=== PATIENT | male | born 1980 | race Caucasian/White ===

== ENCOUNTER 2022-08-27 18:14 | Emergency (ER) | payer OTHER ==
[~2022-08-27] VITALS: Ht 185.4 cm; Wt 86.2 kg
--- NOTE | 2022-08-27 18:40 | NUR ---
seen and examined by MD Ngo
[2022-08-27] MEDS ORDERED: IV NORMAL SALINE 1000 ML BAG IV ONE (18:45)
[2022-08-27] MEDS ORDERED: PROCHLORPERAZINE EDISYLATE 10 MG/2 ML VIAL IV ONE (18:45)
[2022-08-27 18:59] LABS: HEMATOCRIT 45.4 % (36.7-47.1); MEAN CORPUSCULAR VOLUME 84.8 fL (73.0-96.2); PLATELET COUNT (AUTO) 451 K/uL (152-348)
[2022-08-27] MEDS ORDERED: PROCHLORPERAZINE EDISYLATE 10 MG/2 ML VIAL ONE (18:59)
[2022-08-27 19:05] LABS: CARBON DIOXIDE 32 mmol/L (21-32); CHLORIDE 100 mmol/L (98-107); CREATININE 1.3 mg/dL (0.6-1.3); GLUCOSE 116 mg/dL (74-106); UREA NITROGEN, BLOOD 18 mg/dL (7-18)
--- NOTE | 2022-08-27 19:10 | NUR ---
REPORT RECEIVED FROM STEPH WILLIS
--- NOTE | 2022-08-27 19:15 | NUR ---
PT REQUESTED IV BE DISCONTINUED AND TO LEAVE ER. AWARE.
[2022-08-27 19:17] LABS: ALANINE AMINOTRANSFERASE 24 U/L (16-63); ALKALINE PHOSPHATASE 81 U/L (50-136); ASPARTATE AMINOTRANSFERASE 16 U/L (15-37); BILIRUBIN,DIRECT 0.2 mg/dL (0.0-0.2); BILIRUBIN,TOTAL 0.6 mg/dL (0.2-1.0); LIPASE 69 U/L (73-393); TOTAL PROTEIN, SERUM 8.5 g/dL (6.4-8.2)
--- NOTE | 2022-08-27 19:20 | NUR ---
PT A,A AND O X 4 WITH NO C/O CP , NO SOB WITH NAD OBSERVED. PT REQUESTED TO SIGN OUT AMA. RISKS OF LEAVING EXPLAINED TO PT. PT'S IV D/C'D, SITE C/D/I.
--- NOTE | 2022-08-27 21:38 | NUR ---
Patient does not wish to proceed with medical care recommended by Dr. Dean GOVEA ). Patient given information related to possible complications, up to and including , which could occur as a result of leaving the hospital at this time. Patient verbalizes understanding of risks involved due to leaving against medical advice. Patient has signed AMA form. PT AMB OUT WITH STEADY GAIT WITH DAD. Addendum: 08/27/22 at 2140 by GERTRUDIS PREVIOUS NOTE HAPPENED AT 1924.
== END 2022-08-27 19:25 | disposition left against medical advice (07) ==
LOC: ER 18:14
DX: R00.0 Tachycardia, unspecified (principal); T50.905A Adverse effect of unspecified drugs, medicaments and biological substances, initial encounter; Y92.89 Other specified places as the place of occurrence of the external cause
CPT/HCPCS: 99284; 96374; 80076; 80048; 83690; 83735; 85025; 85379; 84484; 36415; 93005; J0780; J7040; A4663

== ENCOUNTER 2023-01-13 15:16 | Emergency (ER) | payer MEDICAID, OTHER ==
[~2023-01-13] VITALS: Ht 182.9 cm; Wt 86.2 kg
[2023-01-13] MEDS ORDERED: LIDOCAINE HCL 2% 20 ML VIAL ONE (16:22)
[2023-01-13] MEDS ORDERED: LIDOCAINE 1%-EPI 1:100,000 20 ML VIAL ONE (16:24)
[2023-01-13] MEDS ORDERED: TDAP DIPH,PERTUSS,TET VAC/PF 0.5 ML DISP.SYRIN IM ONE ×2 (16:25→16:30)
[2023-01-13] MEDS ORDERED: LIDOCAINE 1%-EPI 1:100,000 20 ML VIAL IJ ONE (16:30)
[2023-01-13] MEDS ORDERED: LIDOCAINE HCL 1% 20 ML VIAL IJ ONE (16:30)
[2023-01-13] MEDS ORDERED: NEOMY/BACITRA/POLYMYXIN B OINT UD PACKET TP ONE ×2 (17:15→17:30)
[2023-01-13] MEDS ORDERED: CEPH500C2 PO (17:18)
[2023-01-13 17:39] VITALS: BP 128/81; TEMP 98.4; O2SAT 98
== END 2023-01-13 17:40 | disposition home or self-care (01) ==
LOC: ER 15:23
DX: S02.2XXA Fracture of nasal bones, initial encounter for closed fracture (principal); S01.511A Laceration without foreign body of lip, initial encounter; S30.810A Abrasion of lower back and pelvis, initial encounter; Z79.899 Other long term (current) drug therapy; V49.9XXA Car occupant (driver) (passenger) injured in unspecified traffic accident, initial encounter; Y93.89 Activity, other specified; Y92.410 Unspecified street and highway as the place of occurrence of the external cause; Y99.8 Other external cause status
CPT/HCPCS: 12013; 90471; 90715; 99283; J3490; A4606; A4663

== ENCOUNTER 2023-01-22 15:23 | Emergency (ER) | payer MEDICAID ==
[~2023-01-22] VITALS: Ht 182.9 cm; Wt 86.2 kg
[~2023-01-22 15:23] MED LIST: CEPH500C2 PO
[2023-01-22 15:54] VITALS: O2SAT 96
== END 2023-01-22 16:30 | disposition left against medical advice (07) ==
LOC: ER 15:26
DX: S01.511D Laceration without foreign body of lip, subsequent encounter (principal); S02.2XXD Fracture of nasal bones, subsequent encounter for fracture with routine healing; Z79.899 Other long term (current) drug therapy; X58.XXXD Exposure to other specified factors, subsequent encounter
CPT/HCPCS: A4606; A4663